=== PATIENT | female | born 1980 | race Caucasian/White ===

== ENCOUNTER 2018-12-20 18:14 | Emergency (ER) | payer SELFPAY ==
[~2018-12-20] VITALS: Ht 160 cm; Wt 95.3 kg
--- OUTSIDE RECORDS SUMMARY | 2018-12-20 18:17 | XMS REPORT | Clinical Summary ---
Author Author [facility] Address Unknown Phone Unavailable Care Team Providers Care Assessor Name Role Phone Forrest Castro MD PCP Allergies Comments Active Allergy Reactions Severity Noted Date Pt states the medication made her break out in hives, itching and sever anxiety. Acetaminophen-Codeine Hives, Low 06/16/2017 Itching, Rash Medications End Date Status Medication Sig Dispensed Refills Start Date Active SULFAMETHOXAZOLE/TRIMETHO Take 1 tablet 0 PRIM (BACTRIM ORAL) by mouth 2 (two) times a day. Active traMADol (ULTRAM) 50 mg Take 50 mg by 0 tablet mouth every 6 (six) hours as needed for moderate pain. Active sulfamethoxazole-trimetho Take 1 tablet 0 prim (BACTRIM DS) 800-160 by mouth 2 8 mg per tablet (two) times a day. Active Problems Problem Noted Date Right lower quadrant abdominal pain 06/25/2017 Intractable abdominal pain 06/07/2017 Family History Medical History Relation Name Comments Bone cancer Mother Breast cancer Mother Relation Name Status Comments Mother Social History Date Tobacco Use Types Packs/Day Years Used Never Smoker Smokeless Tobacco: Never Used Alcohol Use Drinks/Week oz/Week Comments Yes occasionally Sex Assigned at Date Recorded Not on file Industry Job Start Date Occupation Not on file Not on file Not on file Travel End Travel History Travel Start No recent travel history available. Last Filed Vital Signs Not on file Plan of Treatment Health Maintenance Due Date Last Done Comments INFLUENZA VACCINE 01/06/2019 Implants Device Identifier Shelf Expiration Date Model / Serial / Lot Implanted Type Area Manufactur er 03/31/2020 [id number] / / [id number] Catheter Uretl 5fr 70cm Opn-End Cardiovasc COOK Flx-Tp Std - [id number] ular UROLOGICAL Implanted: Qty: 1 on 06/25/2017 by Implants Thai Valdivia MD 05/18/2020 [id number] / / [id number] Catheter Uretl 6fr 10fr 50cm Flx-Tp Surgical COOK Dlmn W/ Aq Ctng - [id number] Implants; UROLOGICAL Implanted: Qty: 1 on 06/25/2017 by Expanders; Thai Valdivia MD Extenders; Surgical Wires Results Not on fileafter 12/19/2017 Insurance Type Payer Benefit Subscriber ID Effective Phone Address Plan / Dates Group Exchange BCBS EXCHANGE BLUE xxxxxxxxxxxx [id number] ADVANTAGE resent HMO EXCH Advance Directives Patient has advance care planning documents, and code status on file. For more i nformation, please contact: Hector Guallpa [address] [place] [address] Date Inactivated Comments Code Status Date Activated 06/08/2017 6:13 PM Full Code 06/07/2017 2:51 PM Code Status decision reached by: Patient
--- OUTSIDE RECORDS SUMMARY | 2018-12-20 18:17 | XMS REPORT ---
Author [facility] Address Unknown Phone Unavailable Care Team Providers Care Geography Faculty Member Name Role Phone Unavailable Unavailable Payers Payer Name Policy Type Policy Number Effective Date Expiration Date Problems This patient has no known problems. Allergies, Adverse Reactions, Alerts Allergy Name Allergy Type Status Severity Reaction(s) Onset Date Inactive Date Treating Clinician Comments azithromycin DA Active ND 2015-08-27 00:00:00 Medications This patient has no known medications. Encounters Start Date/Time End Date/Time Encounter Type Admission Type Attending Clinicians Care Facility Care Department Encounter ID 2018-01-29 00:00:00 2018-01-30 00:00:00 Outpatient [facility] [id number] Results Test Description Test Time Test Comments Text Results Atomic Results Result Comments - CT HEAD/BRAIN W/O CONT 2018-10-13 10:17:00 Name: STERLING CARTERland : 1980 Age/S: 38 / F [id number] [facility] Unit #: [id number] Loc: [place] [address] Phys: Carl Goncalves MD Acct: [id number] Dis Date: Status: REG ER PHONE #: [phone] Exam Date: 10/13/2018 1012 FAX #: Reason: dizziness, headache EXAMS: CPT: [id number] CT HEAD/BRAIN W/O CONT 68469 LOCATION: T18 EXAM: CT HEAD WITHOUT CONTRAST INDICATION: dizziness, headache COMPARISON: CT head August 27, 2015 TECHNIQUE: Multiple CT images of the head were obtained. No intravenous contrast was given. Up-to-date CT equipment and radiation dose reduction techniques were utilized. Automatic exposure control was utilized. FINDINGS: No intracranial hemorrhage or extra-axial collection is seen. No midline shift or mass effect is identified. There is no territorial infarct. The ventricles, sulci and cisterns are normal. The calvarium is intact. Peripheral soft tissues are normal. Paranasal sinuses and mastoid air cells are clear. IMPRESSION: No intracranial hemorrhage or territorial infarct. at 1017 Reported and signed by: Bony Lentz M.D. CC: Carl Goncalves MD; Carolina Castro MD Technologist:Manuel Crain, RT(R)(CT) CTDI: DLP: Trnscb Date/Time: 10/13/2018 (1017) [email or web address] Orig Print D/T: S: 10/13/2018 (1020) PAGE 1 Signed Report COMPREHENSIVE METABOLIC PANEL 2018-10-13 09:47:00 SODIUM (test code=NA) 140 mmol/L 134-147 POTASSIUM (test code=K) 3.4 mmol/L 3.4-5.0 CHLORIDE (test code=CL) 104 mmol/L 100-108 CARBON DIOXIDE (test code=CO2) 29 mmol/L 21-32 ANION GAP (test code=GAP) 7.0 GAP calc 4.0-15.0 GLUCOSE (test code=GLU) 85 MG/DL 70-110 BLOOD UREA NITROGEN (test code=BUN) 11 MG/DL 7-18 GLOMERULAR FILTRATION RATE (test code=GFR) >=60 max estimate estGFR >60 CREATININE (test code=CREAT) 0.9 MG/DL 0.6-1.0 TOTAL PROTEIN (test code=PROT) 7.2 G/DL 6.4-8.2 ALBUMIN (test code=ALB) 3.8 G/DL 3.4-5.0 GLOBULIN (test code=GLOB) 3.4 GM/dL ALBUMIN/GLOBULIN RATIO (test code=A/G) 1.1 RATIO 1.2-2.2 CALCIUM (test code=CA) 8.5 MG/DL 8.5-10.1 BILIRUBIN TOTAL (test code=BILT) 0.40 MG/DL 0.2-1.2 SGOT/AST (test code=AST) 15 Unit/L 15-37 SGPT/ALT (test code=ALT) 13 Unit/L 12-78 ALKALINE PHOSPHATASE TOTAL (test code=ALKP) 52 Unit/L 45-117 Completed by Nursing: NOHCG SERUM [id number] 09:47:00* Test Item Value Reference Range Comments HCG SERUM QUAL (test code=HCGQL) SERUM NEGATIVE SCREEN NEGATIVE Completed by Nursing: [id number] 09:47:00* Test Item Value Reference Range Comments TROPONIN-I (test code=TROPI) < 0.015 NG/ML 0.000-0.045 Negative: </=0.045 Positive: >/=0.046 Correlation with serial results, other cardiac markers, and clinical findings is necessary to determine the clinical significance of this result. Quantitative results using different methodologies should not be compared to one another as numerical results may varyby method. Completed by Nursing: NOCOMPREHENSIVE METABOLIC [id number] 09:18:00* Test Item Value Reference Range Comments SODIUM (test code=NA) 140 mmol/L 134-147 POTASSIUM (test code=K) 3.4 mmol/L 3.4-5.0 CHLORIDE (test code=CL) 104 mmol/L 100-108 CARBON DIOXIDE (test code=CO2) 29 mmol/L 21-32 ANION GAP (test code=GAP) 7.0 GAP calc 4.0-15.0 GLUCOSE (test code=GLU) 85 MG/DL 70-110 BLOOD UREA NITROGEN (test code=BUN) 11 MG/DL 7-18 GLOMERULAR FILTRATION RATE (test code=GFR) >=60 max estimate estGFR >60 CREATININE (test code=CREAT) 0.9 MG/DL 0.6-1.0 TOTAL PROTEIN (test code=PROT) 7.2 G/DL 6.4-8.2 ALBUMIN (test code=ALB) 3.8 G/DL 3.4-5.0 GLOBULIN (test code=GLOB) 3.4 GM/dL ALBUMIN/GLOBULIN RATIO (test code=A/G) 1.1 RATIO 1.2-2.2 CALCIUM (test code=CA) 8.5 MG/DL 8.5-10.1 BILIRUBIN TOTAL (test code=BILT) 0.40 MG/DL 0.2-1.2 SGOT/AST (test code=AST) 15 Unit/L 15-37 SGPT/ALT (test code=ALT) 13 Unit/L 12-78 ALKALINE PHOSPHATASE TOTAL (test code=ALKP) 52 Unit/L 45-117 Completed by Nursing: NOHCG SERUM [id number] 09:18:00* Test Item Value Reference Range Comments HCG SERUM QUAL (test code=HCGQL) SCREEN NEGATIVE Completed by Nursing: [id number] 09:18:00* Test Item Value Reference Range Comments TROPONIN-I (test code=TROPI) < 0.015 NG/ML 0.000-0.045 Negative: </=0.045 Positive: >/=0.046 Correlation with serial results, other cardiac markers, and clinical findings is necessary to determine the clinical significance of this result. Quantitative results using different methodologies should not be compared to one another as numerical results may varyby method. Completed by Nursing: NOCBC W/AUTO [id number] 08:57:00* Test Item Value Reference Range Comments WHITE BLOOD CELL (test code=WBC) 6.3 K/mm3 3.5-11.0 RED BLOOD CELL (test code=RBC) 4.24 M/mm3 4.70-6.10 HEMOGLOBIN (test code=HGB) 13.0 G/DL 10.4-14.9 HEMATOCRIT (test code=HCT) 39.5 % 31.5-44.1 MEAN CELL VOLUME (test code=MCV) 93.2 Fl 84.5-98.6 MEAN CELL HGB (test code=MCH) 30.7 pg 27.0-34.2 MEAN CELL HGB CONCETRATION (test code=MCHC) 32.9 G/DL 31.5-34.0 RED CELL DISTRIBUTION WIDTH (test code=RDW) 12.2 SD 11.5-14.5 PLATELET COUNT (test code=PLT) 286.0 K/mm3 150-450 MEAN PLATELET VOLUME (test code=MPV) 10.70 fL 7.0-10.5 NEUTROPHIL % (test code=NT%) 57.9 % 40-76 LYMPHOCYTE % (test code=LY%) 33.3 % 20.5-51.1 MONOCYTE % (test code=MO%) 7.7 % 1.7-9.3 EOSINOPHIL % (test code=EO%) 0.9 % 0.0-6.0 BASOPHIL % (test code=BA%) 0.2 % 0.0-2.0 NEUTROPHIL # (test code=NT#) 3.66 K/mm3 1.8-7.6 LYMPHOCYTE # (test code=LY#) 2.1 K/mm3 0.6-3.2 MONOCYTE # (test code=MO#) 0.5 K/mm3 0.3-1.1 EOSINOPHIL # (test code=EO#) 0.1 K/mm3 0.0-0.4 BASOPHIL # (test code=BA#) 0.0 K/mm3 0.0-0.1 MANUAL DIFF REQUIRED (test code=MDIFF) NO DIFF/SCN CRITERIA
[2018-12-20] MEDS ORDERED: LEVETIRACETAM 500 MG TAB PO ONE (18:30)
[2018-12-20] MEDS ORDERED: TRAMADOL HCL 50 MG TAB PO ONE (18:45)
[2018-12-21] MEDS ORDERED: LEVETIRACETAM 500 MG TAB PO SCH (09:00)
== END 2018-12-20 19:08 | disposition home or self-care (01) ==
LOC: ER 18:14
DX: Z76.0 Encounter for issue of repeat prescription (principal); K08.89 Other specified disorders of teeth and supporting structures; G40.909 Epilepsy, unspecified, not intractable, without status epilepticus
CPT/HCPCS: 99283